=== PATIENT | male | born 1995 | race Caucasian/White ===

== ENCOUNTER 2021-12-05 21:40 | Emergency (ER) | payer BC, SELFPAY ==
[2021-12-05] MEDS ORDERED: Lidocaine 1% (PF) 30 ML VIAL ONE (21:58)
[2021-12-05] MEDS ORDERED: Bacitracin 1 PK ONE ×3 (21:58→22:25)
== END 2021-12-05 22:52 | disposition home or self-care (01) ==
LOC: MADERS 21:40
DX: S01.01XA Laceration without foreign body of scalp, initial encounter (principal); S80.211A Abrasion, right knee, initial encounter; S50.811A Abrasion of right forearm, initial encounter; S50.311A Abrasion of right elbow, initial encounter; V86.69XA Passenger of other special all-terrain or other off-road motor vehicle injured in nontraffic accident, initial encounter
CPT/HCPCS: 12002; J2001